=== PATIENT | female | born 1985 | race Caucasian/White ===

== ENCOUNTER 2016-07-05 19:23 | Emergency (ER) | payer OTHER ==
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
--- NOTE | 2016-07-05 21:00 | ED ORDER SUMMARY ---
..... Patient: DOMINIK KILLIAN OrderSheet [facility] VisitID: [id number] [place] [address] 31y, F Registration Date/Time: 07/05/2016 ORDER SHEET Weight: 91.6 kg (stated) Allergies: Sulfa Antibiotics, Codeine, Penicillins GENERAL ORDERS: Wet Prep (Cervix) (c) Urgent (19:40 07/05/2016 EKoroleva P.A.-C) (Ack 19:41 [facility] Warehouse Delivery Driver) (20:09 MWinterer R.N.) UA-Culture if indicated Urgent (19:40 07/05/2016 EKoroleva P.A.-C) (Ack 19:41 [facility] Warehouse Delivery Driver) (19:42 DDavis R.N.) Pelvic Exam Setup (19:40 07/05/2016 EKoroleva P.A.-C) (19:42 MWinterer R.N.) Urine Urgent (20:11 07/05/2016 EKoroleva P.A.-C) (Ack 20:18 [facility] Warehouse Delivery Driver) (20:18 [facility] Warehouse Delivery Driver) MEDICATION ORDERS: Macrobid PO 100 mg (NOW) (20:45 07/05/2016 EKoroleva P.A.-C) (Ack 20:53 MWinterer R.N.) (21:02 MWinterer R.N.) Hydrocodone-APAP PO 10/650 mg (NOW, HIGH ALERT MEDICATION) (20:50 07/05/2016 EKoroleva P.A.-C) (Ack 20:53 MWinterer R.N.) (21:02 MWinterer R.N.) Pyridium PO 200 mg (NOW) (20:50 07/05/2016 EKoroleva P.A.-C) (Ack 20:53 MWinterer R.N.) (21:02 MWinterer R.N.) IV FLUIDS: ORDER SHEET NOTES: [Electronically signed by Vale DurhamACharo-Jose (21:08 07/05/2016)] [Electronically signed by Melina Matthew R.N. (21:41 07/05/2016)] [Electronically locked/signed by Melina Matthew R.N. (21:41 07/05/2016)]
--- NOTE | 2016-07-05 21:00 | ED ORDER SUMMARY ---
..... Patient: DOMINIK KILLIAN OrderSheet [facility] VisitID: [id number] [place] [address] 31y, F Registration Date/Time: 07/05/2016 ORDER SHEET Weight: 91.6 kg (stated) Allergies: Sulfa Antibiotics, Codeine, Penicillins GENERAL ORDERS: Wet Prep (Cervix) (c) Urgent (19:40 07/05/2016 EKoroleva P.A.-C) (Ack 19:41 [facility] Radiographer Angiogram) (20:09 MWinterer R.N.) UA-Culture if indicated Urgent (19:40 07/05/2016 EKoroleva P.A.-C) (Ack 19:41 [facility] ER Radiographer Angiogram) (19:42 DDavis R.N.) Pelvic Exam Setup (19:40 07/05/2016 EKoroleva P.A.-C) (19:42 MWinterer R.N.) Urine Urgent (20:11 07/05/2016 EKoroleva P.A.-C) (Ack 20:18 CH[facility] ER Radiographer Angiogram) (20:18 CHagerty ER Radiographer Angiogram) MEDICATION ORDERS: Macrobid PO 100 mg (NOW) (20:45 07/05/2016 EKoroleva P.A.-C) (Ack 20:53 MWinterer R.N.) (21:02 MWinterer R.N.) Hydrocodone-APAP PO 10/650 mg (NOW, HIGH ALERT MEDICATION) (20:50 07/05/2016 EKoroleva P.A.-C) (Ack 20:53 MWinterer R.N.) (21:02 MWinterer R.N.) Pyridium PO 200 mg (NOW) (20:50 07/05/2016 EKoroleva P.A.-C) (Ack 20:53 MWinterer R.N.) (21:02 MWinterer R.N.) IV FLUIDS: ORDER SHEET NOTES: [Electronically signed by Vale DurhamACharo-Jose (21:08 07/05/2016)] [Electronically signed by Melina Matthew R.N. (21:41 07/05/2016)] [Electronically locked/signed by Melina Matthew R.N. (21:41 07/05/2016)]
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
--- NOTE | 2016-07-05 21:42 | ED MED RECONCILIATION SUMMARY ---
Patient: DOMINIK KILLIAN Medication Reconciliation Report [facility] VisitID: [id number] [place] [address] 31y, F Registration Date/Time: 07/05/2016 Weight: 91.6 kg Height/Length: 63 in. BMI: 35.8 ALLERGIES: Codeine, Penicillins, Sulfa Antibiotics The patient's Home Medications are listed below: THE FOLLOWING MEDICATIONS NEED TO BE RECONCILED: Methadone HCl Oral (10 mg) The source(s) of the original Home Medication information: patient The following Medications were given to the patient in the Emergency Department: Macrobid [PO] PO 100 mg, administered: 07/05/2016 9:01:00 PM Hydrocodone-APAP [PO] PO 2 tab, administered: 07/05/2016 9:02:00 PM Pyridium [PO] PO 200 mg, administered: 07/05/2016 9:02:00 PM The following Medications were prescribed to the patient: Hydrocodone/APAP 5mg / 325mg: take 1 orally every 6 hours as needed for pain. Dispense five (5). No refill. -- Vale Durham, P.A.-C Pyridium 200 mg: take 1 orally every 8 hours as needed for urinary problems. Dispense six (6). No refills. Substitution is permissible. -- Vale Durham, P.A.-C Macrobid 100 mg: Take 1 capsule orally every 12 hours for 7 days. No refills. Substitution is permissible. -- Vale Durham, P.A.-C
--- NOTE | 2016-07-05 21:42 | ED MAR SUMMARY ---
..... Medication Administration Record [facility] [address] [place] [address] Patient: DOMINIK KILLIAN Visit ID: [id number] 31y, F Weight: 91.6 kg Height/Length: 63 in BMI: 35.8 ALLERGIES: Penicillins, Codeine, Sulfa Antibiotics Given 21:07/05/2016 Melina Matthew, RCharoNCharo Medication Administered: MACROBID [PO], Dose: 100 mg PO. Medication Ordered: Macrobid PO 100 mg (NOW). Given :07/05/2016 Melina Matthew RCharoN. Medication Administered: HYDROCODONE-APAP [PO] (HYDROCODONE-ACETAMINOPHEN), Dose: 2 tab 5/325 mg Tablets PO. Medication Ordered: Hydrocodone-APAP PO 10/650 mg (NOW, HIGH ALERT MEDICATION). Given 21:07/05/2016 Melina Matthew, R.N. Medication Administered: PYRIDIUM [PO] (PHENAZOPYRIDINE HCL), Dose: 200 mg PO. Medication Ordered: Pyridium PO 200 mg (NOW).
--- NOTE | 2016-07-05 21:42 | ED DISCHARGE INSTRUCTIONS ---
Patient: DOMINIK KILLIAN General Instructions [facility] VisitID: [id number] [place] [address] 31y, F Registration Date/Time: 07/05/2016 Pelvic pain. Acute cystitis. INSTRUCTIONS Drink plenty of fluids. Warnings: Further evaluation is necessary. Prescription Medications: Hydrocodone/APAP 5mg / 325mg: take 1 orally every 6 hours as needed for pain. Dispense five (5). No refill. Pyridium 200 mg: take 1 orally every 8 hours as needed for urinary problems. Dispense six (6). No refills. Substitution is permissible. Macrobid 100 mg: Take 1 capsule orally every 12 hours for 7 days. No refills. Substitution is permissible. Follow-up: Follow up with your doctor Wednesday. ADDITIONAL INFORMATION Pelvic Pain, Uncertain Cause Based on your visit today, the exact cause of your pelvic pain is not certain. But your condition does not appear to be serious at this time. However, the signs of a serious problem may take more time to appear. Therefore, it is important for you to watch for any new symptoms or worsening of your condition. Home Care: Rest until you are feeling better. Avoid sexual intercourse until your pain goes away. You may use acetaminophen (Tylenol) or ibuprofen (Motrin, Advil) to control pain, unless another medicine was prescribed. [NOTE: If you have chronic liver or kidney disease or ever had a stomach ulcer or GI bleeding, talk with your doctor before using these medicines.] Follow Up with your doctor as advised. If a culture test was taken, call in two days for the results. If the culture is positive, you will be given more advice at that time. Otherwise, follow-up with your doctor or this facility as instructed. Get Prompt Medical Attention if any of the following occur: Fever of 100.4F (38C) or higher, or as directed by your healthcare provider Vaginal discharge Worsening pain Weakness, dizziness or fainting Unexpected vaginal bleeding or passage of lund or white tissue from the vagina Pain that moves to the right lower abdomen Bladder Infection,Female (Adult) A bladder infection ("cystitis" or "UTI") usually causes a constant urge to urinate and a burning when passing urine. Urine may be cloudy, smelly or dark. There may be pain in the lower abdomen. A bladder infection occurs when bacteria from the vaginal area enter the bladder opening (urethra). This can occur from sexual intercourse, wearing tight clothing, dehydration and other factors. Home Care: Drink lots of fluids (at least 6-8 glasses a day, unless you must restrict fluids for other medical reasons). This will force the medicine into your urinary system and flush the bacteria out of your body. Avoid sexual intercourse until your symptoms are gone. Avoid caffeine, alcohol and spicy foods. These can irritate the bladder. A bladder infection is treated with antibiotics. You may also be given Pyridium (generic = phenazopyridine) to reduce the burning sensation. This medicine will cause your urine to become a bright orange color. The orange urine may stain clothing. You may wear a pad or panty-liner to protect clothing. Preventing Future Infections: Always wipe from front to back after a bowel movement. Keep the genital area clean and dry. Drink plenty of fluids each day to avoid dehydration. Both sexual partners should wash before intercourse. Urinate right after intercourse to flush out the bladder. Wear cotton underwear and cotton-lined panty hose; avoid tight-fitting pants. If you are on control pills and are having frequent bladder infections, discuss with your doctor. Follow Up: Return to this facility or see your doctor if ALL symptoms are not gone after three days of treatment. Get Prompt Medical Attention if any of the following occur: Fever of 100.4F (38C) or higher, or as directed by your healthcare provider No improvement by the third day of treatment Increasing back or abdominal pain Repeated vomiting; unable to keep medicine down Weakness, dizziness or fainting Vaginal discharge Pain, redness or swelling in the labia (outer vaginal area) Hydrocodone Bitartrate, Acetaminophen Oral tablet What is this medicine? ACETAMINOPHEN; HYDROCODONE (a set a ISAURA love fen; claudia droe KOE done) is a pain reliever. It is used to treat mild to moderate pain. How should I use this medicine? Take this medicine by mouth. Swallow it with a full glass of water. Follow the directions on the prescription label. If the medicine upsets your stomach, take the medicine with food or milk. Do not take more than you are told to take. Talk to your clinician oncology regarding the use of this medicine in children. This medicine is not approved for use in children. What side effects may I notice from receiving this medicine? Side effects that you should report to your doctor or health customer care consultant as soon as possible: allergic reactions like skin rash, itching or hives, swelling of the face, lips, or tongue breathing problems confusion feeling faint or lightheaded, falls stomach pain yellowing of the eyes or skin Side effects that usually do not require medical attention (report to your doctor or health customer care consultant if they continue or are bothersome): nausea, vomiting stomach upset What may interact with this medicine? alcohol antihistamines isoniazid medicines for depression, anxiety, or psychotic disturbances medicines for sleep muscle relaxants naltrexone narcotic medicines (opiates) for pain phenobarbital ritonavir tramadol What if I miss a dose? If you miss a dose, take it as soon as you can. If it is almost time for your next dose, take only that dose. Do not take double or extra doses. Where should I keep my medicine? Keep out of the reach of children. This medicine can be abused. Keep your medicine in a safe place to protect it from theft. Do not share this medicine with anyone. Selling or giving away this medicine is dangerous and against the law. Store at room temperature between 15 and 30 degrees C (59 and 86 degrees F). Protect from light. Keep container tightly closed. Throw away any unused medicine after the expiration date. Discard unused medicine and used packaging carefully. Pets and children can be harmed if they find used or lost packages. What should I tell my health care provider before I take this medicine? They need to know if you have any of these conditions: brain tumor Crohn's disease, inflammatory bowel disease, or ulcerative colitis drink more than 3 alcohol-containing drinks per day drug abuse or addiction head injury heart or circulation problems kidney disease or problems going to the bathroom liver disease lung disease, asthma, or breathing problems an unusual or allergic reaction to acetaminophen, hydrocodone, other opioid analgesics, other medicines, foods, dyes, or preservatives or trying to get breast-feeding What should I watch for while using this medicine? Tell your doctor or health customer care consultant if your pain does not go away, if it gets worse, or if you have new or a different type of pain. You may develop tolerance to the medicine. Tolerance means that you will need a higher dose of the medicine for pain relief. Tolerance is normal and is expected if you take the medicine for a long time. Do not suddenly stop taking your medicine because you may develop a severe reaction. Your body becomes used to the medicine. This does NOT mean you are addicted. Addiction is a behavior related to getting and using a drug for a non-medical reason. If you have pain, you have a medical reason to take pain medicine. Your doctor will tell you how much medicine to take. If your doctor wants you to stop the medicine, the dose will be slowly lowered over time to avoid any side effects. You may get drowsy or dizzy when you first start taking the medicine or change doses. Do not drive, use machinery, or do anything that may be dangerous until you know how the medicine affects you. Stand or sit up slowly. There are different types of narcotic medicines (opiates) for pain. If you take more than one type at the same time, you may have more side effects. Give your health care provider a list of all medicines you use. Your doctor will tell you how much medicine to take. Do not take more medicine than directed. Call emergency for help if you have problems breathing. The medicine will cause constipation. Try to have a bowel movement at least every 2 to 3 days. If you do not have a bowel movement for 3 days, call your doctor or health customer care consultant. Too much acetaminophen can be very dangerous. Do not take Tylenol (acetaminophen) or medicines that contain acetaminophen with this medicine. Many non-prescription medicines contain acetaminophen. Always read the labels carefully. You have been given the following additional information: Pelvic Pain, Unknown Cause Bladder Infection, Female (Adult) Hydrocodone Bitartrate, Acetaminophen Oral tablet (Electronically signed by Vale Durham P.A.-C 07/05/2016 21:08)
--- NOTE | 2016-07-05 21:42 | ED MED RECONCILIATION SUMMARY ---
Patient: DOMINIK KILLIAN Medication Reconciliation Report [facility] VisitID: [id number] [place] [address] 31y, F Registration Date/Time: 07/05/2016 Weight: 91.6 kg Height/Length: 63 in. BMI: 35.8 ALLERGIES: Codeine, Penicillins, Sulfa Antibiotics The patient's Home Medications are listed below: THE FOLLOWING MEDICATIONS NEED TO BE RECONCILED: Methadone HCl Oral (10 mg) The source(s) of the original Home Medication information: patient The following Medications were given to the patient in the Emergency Department: Macrobid [PO] PO 100 mg, administered: 07/05/2016 9:01:00 PM Hydrocodone-APAP [PO] PO 2 tab, administered: 07/05/2016 9:02:00 PM Pyridium [PO] PO 200 mg, administered: 07/05/2016 9:02:00 PM The following Medications were prescribed to the patient: Hydrocodone/APAP 5mg / 325mg: take 1 orally every 6 hours as needed for pain. Dispense five (5). No refill. -- Vale Durham, P.A.-C Pyridium 200 mg: take 1 orally every 8 hours as needed for urinary problems. Dispense six (6). No refills. Substitution is permissible. -- Vale Durham, P.A.-C Macrobid 100 mg: Take 1 capsule orally every 12 hours for 7 days. No refills. Substitution is permissible. -- Vale Durham, P.A.-C
--- NOTE | 2016-07-05 21:42 | ED MAR SUMMARY ---
..... Medication Administration Record [facility] [address] [place] [address] Patient: DOMINIK KILLIAN Visit ID: [id number] 31y, F Weight: 91.6 kg Height/Length: 63 in BMI: 35.8 ALLERGIES: Penicillins, Codeine, Sulfa Antibiotics Given 21:07/05/2016 Melina Matthew, RCharoNCharo Medication Administered: MACROBID [PO], Dose: 100 mg PO. Medication Ordered: Macrobid PO 100 mg (NOW). Given :07/05/2016 Melina Matthew RCharoN. Medication Administered: HYDROCODONE-APAP [PO] (HYDROCODONE-ACETAMINOPHEN), Dose: 2 tab 5/325 mg Tablets PO. Medication Ordered: Hydrocodone-APAP PO 10/650 mg (NOW, HIGH ALERT MEDICATION). Given 21:07/05/2016 Melina Matthew, R.N. Medication Administered: PYRIDIUM [PO] (PHENAZOPYRIDINE HCL), Dose: 200 mg PO. Medication Ordered: Pyridium PO 200 mg (NOW).
== END 2016-07-05 21:15 | disposition home or self-care (01) ==
LOC: ED SRH 19:23
DX: N30.00 Acute cystitis without hematuria (principal); R10.2 Pelvic and perineal pain; Z97.5 Presence of (intrauterine) contraceptive device; F17.210 Nicotine dependence, cigarettes, uncomplicated; Z88.2 Allergy status to sulfonamides; Z88.0 Allergy status to penicillin; Z88.5 Allergy status to narcotic agent
CPT/HCPCS: 90004; 90195; 90469; 93070